=== PATIENT | male | born 1965 | race Caucasian/White ===

== ENCOUNTER → 2017-03-13 | Outpatient (REF) ==
[2017-03-13 16:24] LABS: PSA-TOTAL 0.23 ng/mL (0-4)
== END ==
LOC: ZLAB.WCH 13:28
PROVIDERS: Family Medicine
DX: Z01.89 Encounter for other specified special examinations (principal)
CPT/HCPCS: G0103

== ENCOUNTER → 2018-04-16 | Outpatient (REF) ==
[2018-04-16 15:23] LABS: THYROID STIMULATING HORMONE 5.85 uIU/mL (0.465-4.680)
== END ==
LOC: ZLAB.WCH 14:25
PROVIDERS: Family Medicine
DX: Z01.89 Encounter for other specified special examinations (principal)

== ENCOUNTER → 2018-04-25 | Outpatient (REF) | LOC: ZLAB.WCH 11:54 | DX: Z01.89 Encounter for other specified special examinations (principal) | CPT/HCPCS: G0103 ==

== ENCOUNTER → 2018-10-12 | Outpatient (REF) ==
[2018-10-12 17:11] LABS: THYROID STIMULATING HORMONE 2.1 uIU/mL (0.465-4.680)
== END ==
LOC: ZLAB.WCH 16:24
PROVIDERS: Family Medicine
DX: Z01.89 Encounter for other specified special examinations (principal)

== ENCOUNTER → 2019-03-03 | Outpatient (CLI) | payer BC ==
[~2019-03-03] VITALS: Ht 175.3 cm; Wt 148.6 kg
[~2019-03-03] MED LIST: CELEXA 20MG20 MG/TAB PO; LOTENSIN40 MG PO; MOBIC15 MG PO; NORVASC2.5 MG PO; SYNTHROID0.112 MG/T PO
[2019-03-03 08:27] VITALS: BP 144/80; PULSE 77
== END ==
LOC: LIGHT 08:01
DX: E88.81 Metabolic syndrome and other insulin resistance (principal); I10 Essential (primary) hypertension; R73.01 Impaired fasting glucose; E66.01 Morbid (severe) obesity due to excess calories; Z68.42 Body mass index [BMI] 45.0-49.9, adult; Z71.3 Dietary counseling and surveillance
CPT/HCPCS: G0463

== ENCOUNTER → 2019-03-05 | Outpatient (REF) ==
[2019-03-05 11:33] LABS: THYROID STIMULATING HORMONE 2.39 uIU/mL (0.465-4.680)
== END ==
LOC: ZLAB.WCH 10:44
PROVIDERS: Family Medicine
DX: Z01.89 Encounter for other specified special examinations (principal)

== ENCOUNTER → 2019-03-08 | Outpatient (CLI) | payer BC | LOC: LIGHT 10:13 | DX: E88.81 Metabolic syndrome and other insulin resistance (principal); I10 Essential (primary) hypertension; R73.01 Impaired fasting glucose; E66.01 Morbid (severe) obesity due to excess calories; Z68.42 Body mass index [BMI] 45.0-49.9, adult; Z71.3 Dietary counseling and surveillance ==

== ENCOUNTER → 2019-04-06 | Outpatient (CLI) | payer BC ==
[~2019-04-06] VITALS: Ht 175.3 cm; Wt 138.3 kg
[2019-04-06 15:57] VITALS: BP 130/74; PULSE 61
== END ==
LOC: LIGHT 11:56
DX: I10 Essential (primary) hypertension (principal); E88.81 Metabolic syndrome and other insulin resistance; G47.33 Obstructive sleep apnea (adult) (pediatric); E66.01 Morbid (severe) obesity due to excess calories; Z68.42 Body mass index [BMI] 45.0-49.9, adult; Z71.3 Dietary counseling and surveillance
CPT/HCPCS: G0463

== ENCOUNTER → 2019-05-11 | Outpatient (CLI) | payer BC ==
[~2019-05-11] VITALS: Ht 175.3 cm; Wt 134.5 kg
[~2019-05-11] MED LIST changes: +COLCRYS0.6 MG PO
[2019-05-11 16:08] VITALS: BP 150/86; PULSE 62
== END ==
LOC: LIGHT 11:40
DX: I10 Essential (primary) hypertension (principal); E88.81 Metabolic syndrome and other insulin resistance; G47.33 Obstructive sleep apnea (adult) (pediatric); E66.01 Morbid (severe) obesity due to excess calories; Z68.41 Body mass index [BMI] 40.0-44.9, adult; Z71.3 Dietary counseling and surveillance
CPT/HCPCS: G0463

== ENCOUNTER → 2019-06-15 | Outpatient (CLI) | payer BC ==
[~2019-06-15] VITALS: Ht 175.3 cm; Wt 125.9 kg
[2019-06-15 15:59] VITALS: BP 136/82; PULSE 62
== END ==
LOC: LIGHT 15:12
DX: I10 Essential (primary) hypertension (principal); E88.81 Metabolic syndrome and other insulin resistance; G47.33 Obstructive sleep apnea (adult) (pediatric); E66.01 Morbid (severe) obesity due to excess calories; Z68.41 Body mass index [BMI] 40.0-44.9, adult; Z71.3 Dietary counseling and surveillance
CPT/HCPCS: G0463

== ENCOUNTER → 2019-08-10 | Outpatient (CLI) | payer BC ==
[~2019-08-10] VITALS: Ht 175.3 cm; Wt 121.6 kg
[2019-08-10 16:21] VITALS: BP 136/76; PULSE 62
== END ==
LOC: LIGHT 07-13 10:04
DX: I10 Essential (primary) hypertension (principal); E88.81 Metabolic syndrome and other insulin resistance; G47.33 Obstructive sleep apnea (adult) (pediatric); E66.01 Morbid (severe) obesity due to excess calories; Z68.39 Body mass index [BMI] 39.0-39.9, adult; Z71.3 Dietary counseling and surveillance
CPT/HCPCS: G0463

== ENCOUNTER → 2020-04-27 | Outpatient (CLI) | payer BC | LOC: COL.RAD 07:48 | DX: M16.12 Unilateral primary osteoarthritis, left hip (principal) | CPT/HCPCS: J3301; Q9967 ==

== ENCOUNTER → 2020-08-22 | Outpatient (CLI) | payer BC | LOC: COL.RAD 08:09 | DX: M16.12 Unilateral primary osteoarthritis, left hip (principal) | CPT/HCPCS: J3301; Q9967 ==

== ENCOUNTER → 2022-12-30 | Outpatient (CLI) | payer OTHER | LOC: COL.RAD 08:00 | DX: M25.551 Pain in right hip (principal) | CPT/HCPCS: J3301; Q9967 ==

== ENCOUNTER → 2024-01-12 | Outpatient (CLI) | payer OTHER | LOC: MHCPAIN 09:48 | DX: M25.551 Pain in right hip (principal); M79.604 Pain in right leg; Z96.641 Presence of right artificial hip joint; M51.36 Other intervertebral disc degeneration, lumbar region | CPT/HCPCS: G0463 ==

== ENCOUNTER → 2024-03-22 | Outpatient (CLI) | payer BC | LOC: MHCPAIN 13:48 | DX: M25.551 Pain in right hip (principal); M79.604 Pain in right leg; M51.36 Other intervertebral disc degeneration, lumbar region; Z96.641 Presence of right artificial hip joint | CPT/HCPCS: G0463 ==